=== PATIENT | female | born 1950 | race Caucasian/White ===

== ENCOUNTER 2020-08-16 15:18 | Emergency (ER) | payer MEDICARE, SELFPAY ==
--- NOTE | ~2020-08-16 | XR_ITS ---
XR sacrum coccyx min 2V DATE: 08/16/2020 17:08 INDICATION: Fall, injury. Low back and sacral and coccyx pain TECHNIQUE: AP, angled AP and lateral views COMPARISON: None FINDINGS: No sacral or coccygeal fracture or bone destruction is evident. IMPRESSION: Negative sacrum and coccyx Status post L3-S1 posterior surgical spinal fusion Reviewed, dictated and finalized at location A. AG MACHINE OPERATOR
--- NOTE | ~2020-08-16 | XR_ITS ---
XR lumbar spine 2-3V DATE: 08/16/2020 17:09 INDICATION: Lower back pain radiating to right leg TECHNIQUE: AP, lateral, coned lateral lumbosacral views COMPARISON: 04/10/2019 lumbar spine FINDINGS: Again noted are postoperative changes from laminectomy and posterior spinal surgical fusion at L3-S1. No fracture or displacement of the pedicle screws or rods. The lumbar spine fracture or bone destruction. There is degenerative disc disease throughout the lumbar and lumbosacral spine as well as diffuse idi opathic skeletal hyperostosis of the lower thoracic spine. There is stable grade 1 anterolisthesis at L3-4. The sacroiliac joints are intact. Abdominal aortic and iliac arterial calcifications. IMPRESSION: Postoperative changes from laminectomy and posterior surgical fusion at L3-S1 Multilevel degenerative disc disease Stable mild grade 1 anterolisthesis at L3-4 Reviewed, dictated and finalized at location A. MEDICAL SURGICAL IMPRESSION: Postoperative changes from laminectomy and posterior surgical fusio n at L3-S1 Multilevel degenerative disc disease Stable mild grade 1 anterolisthesis at L3-4
--- NOTE | ~2020-08-16 | XR_ITS ---
XR shoulder LT min 2V DATE: 08/16/2020 17:09 INDICATION: Fall yesterday. Left shoulder injury, pain TECHNIQUE: 4 views COMPARISON: 08/16/2019 left shoulder FINDINGS: There is degenerative change of the left acromion clavicular joint. There is mild spurring of the left humeral head and glenoid process consistent with left glenohumeral osteoarthritis. No fracture, dislocation, periosteal reaction or bone destruction or significant abnormal left should er soft tissue calcification is noted otherwise. Degenerative changes of the cervical spine. Diffuse idiopathic skeletal hyperostosis of the thoracic spine. IMPRESSION: Degenerative change at the acromioclavicular joint and osteoarthritis at the glenohumeral joint Reviewed, dictated and finalized at location A. CASE MANAGER IMPRESSION: Degenerative change at the acromioclavicular joint and osteoarthrit is at the glenohumeral joint
[2020-08-16 15:23] VITALS: BP 131/72; PULSE 87; RESP 18; TEMP 36.2; O2SAT 97
[2020-08-16] MEDS: HYDROcodone/acetaminophen (*CRX) 5-325 MG TABLET 1 TAB PO (17:06)
--- NOTE | 2020-08-16 17:16 | ED.GENADULT ---
HPI - General Adult General Chief complaint: Fall Stated complaint: 10ft FALL, TAILBONE PAIN Time Seen by Provider: 08/16/20 16:00 History of Present Illness HPI narrative: Patient is a 69-year-old female who presents ER with pain to her coccyx and left shoulder. Patient was on a short 4 foot tall ladder yesterday hanging [place] lights in her home when she lost her balance and fell backwards onto a chair and a plantar and then onto the floor striking her buttock and shoulder. She did not strike her head or lose consciousness. She reports she is able to ambulate without issue but has significant pain when sitting down and it causes her a lot of pain when trying to stand back up. Will occasionally get some radiation down her left leg of pain no numbness. This is not persistent. She has no perineal numbness or tingling. She has no incontinence or retention of urine/stool. Related Data Home Medications Medication Instructions Recorded Confirmed aspirin 81 mg tablet,delayed 81 mg PO DAILY 09/11/19 01/07/20 release cyclobenzaprine 5 mg tablet 5 mg PO BID PRN tablet 09/11/19 01/07/20 lidocaine 4 % topical patch 1 patch TOPICAL DAILY PRN 09/11/19 01/07/20 soy isoflavone-black cohosh cap PO 11/11/19 01/07/20 root-magnolia bark 155 mg capsule Allergies Allergy/AdvReac Type Severity Reaction Status Date / Time Iodinated Contrast Media Allergy Unknown sob Verified 01/07/20 13:25 Contrast Media Allergy Unknown Dyspnea / Uncoded 01/07/20 13:25 SOB Review of Systems Review of Systems: All systems reviewed & are unremarkable except as noted in HPI and below Constitutional: Constitutional: Denies chills, Denies fever(s) and Denies weakness Cardiovascular: Cardiovascular: Denies chest pain and Denies radiating jaw, neck or arm pain Musculoskeletal: Musculoskeletal: Reports back pain, Reports arthralgias, Denies joint swelling and Denies muscle cramps Neurologic: Denies syncope, Denies headache(s), Denies focal weakness and Denies numbness [facility] Past Medical History Medical History (Updated 08/16/20 @ 18:08 by Medardo Shaver MD) Arthritis Asthma CAD (coronary artery disease) Chronic pain Gout Herpes Hyperglycemia Hyperlipidemia Hypertension MDD (major depressive disorder) Osteoporosis Post-menopausal Prominent bone fixation device PUD (peptic ulcer disease) Type 2 diabetes mellitus Surgical History Surgical History H/O bone graft Iliac bone graft History of coronary artery stent placement History of left knee replacement History of lumbar laminectomy Family History Family History Father Hypertension Acute myocardial infarction Family history of hypercholesterolemia Mother Acute myocardial infarction Cerebrovascular accident Sibling Acute myocardial infarction Social History Social History Smoking status: Never smoker Second hand tobacco smoke exposure: No Alcohol intake: never Gender identity (if verbalized by the patient): Female Exam Narrative: Exam Narrative: GENERAL: Well-appearing, well-nourished, and in no acute distress. HEAD: Normocephalic, atraumatic. CHEST: Clear to auscultation. No respiratory distress. HEART: Regular rate and rhythm. Normal peripheral pulses. EXTREMITIES: Normal range of motion. No edema. Back: No midline tenderness of thoracic or lumbar spine. There is bruising and tenderness over the sacrum at the gluteal cleft. SKIN: Warm, dry, no rash. NEURO: Sensation intact in lower extremities. Alert and oriented x3. PSYCH: Normal mood and affect. Course Course Emergency Course: Informed results. Pain improved with [place]. Discharge home. Vital Signs Vital signs: Vital Signs Temperature 97.2 F L 08/16/20 15:23 Pulse Rate 87 08/16/20 15:23 Respiratory Rate 18 08/16/20
[2020-08-16 18:20] VITALS: BP 133/75; PULSE 78; RESP 18; O2SAT 99
== END 2020-08-16 18:21 | disposition home or self-care (01) ==
PROVIDERS: Emergency Provider Emergency Medicine; PCP Internal Medicine
DX: S30.0XXA Contusion of lower back and pelvis, initial encounter (principal); W11.XXXA Fall on and from ladder, initial encounter; M19.90 Unspecified osteoarthritis, unspecified site; J45.909 Unspecified asthma, uncomplicated; I25.10 Atherosclerotic heart disease of native coronary artery without angina pectoris; Z95.5 Presence of coronary angioplasty implant and graft; M10.9 Gout, unspecified; E78.5 Hyperlipidemia, unspecified; I10 Essential (primary) hypertension; M81.0 Age-related osteoporosis without current pathological fracture; E11.9 Type 2 diabetes mellitus without complications; Z96.652 Presence of left artificial knee joint; Z79.82 Long term (current) use of aspirin
CPT/HCPCS: 72100; 72220; 73030; 99284; A9270

== ENCOUNTER 2021-02-23 15:06 | Outpatient (CLI) | payer MEDICARE, SELFPAY ==
--- NOTE | ~2021-02-23 | XR_ITS ---
XR thoracic spine 3V DATE: 02/23/2021 15:36 INDICATION: Thoracic spine pain TECHNIQUE: AP, lateral, swimmer views COMPARISON: None FINDINGS: Diffuse osteopenia. There is prominent degenerative disc disease at the mid and particularly lower cervical spine. There is degenerative spurring throughout the thoracic spine, particularly prominent in the mid and l ower thoracic spine. The thoracic pedicles are intact. No fracture or bone destruction is evident. No paraspinal soft tiss ue thickening is detected. IMPRESSION: Osteopenia Prominent degenerative changes of the cervical and thoracic spine Reviewed, dictated and finalized at location A.
--- NOTE | ~2021-02-23 | XR_ITS ---
XR hand BI arthritis min 3V DATE: 02/23/2021 15:36 INDICATION: Right hand pain TECHNIQUE: 4 views of each hand COMPARISON: None FINDINGS: Right hand: Mild triangular cartilage calcification. There is severe osteoarthritic change at the first carpometacarpal joint. There is osteoarthritic change at the metacarpophalangeal joints, most pronounced at the first, secon d and fifth. There is moderate osteoarthritic change at the interphalangeal joints, especially at the first digit and second and third digit, most severe at the proximal interphalangeal joint of the third digit. No fracture, dislocation, periosteal reaction or bone destruction is evident. Left hand: There is severe osteoarthritic change at the first carpometacarpal joint. Prominent osteoarthritic changes noted at the first and second metacarpophalangeal joints and multipl e interphalangeal joints, especially the interphalangeal joint of the first digit and proximal interp halangeal joints of the third and fourth digits. No fracture, dislocation, periosteal reaction or bone destruction is detected. IMPRESSION: Prominent polyarticular osteoarthritis of the hands Reviewed, dictated and finalized at location A.
[2021-02-23 16:22] LABS: Rheumatoid Factor < 8.6 IU/ML (<12)
[2021-02-23 17:23] LABS: Erythrocyte Sedimentation Rate 35 mm/hr (0-20)
[2021-02-28 08:28] LABS: ANA Cascade Screen Negative (Negative)
== END 2021-02-23 15:07 | disposition home or self-care (01) ==
LOC: ANHIMG 15:09
PROVIDERS: PCP Internal Medicine; Visit Provider Nurse Practitioner
DX: M18.0 Bilateral primary osteoarthritis of first carpometacarpal joints (principal); M19.042 Primary osteoarthritis, left hand; M19.041 Primary osteoarthritis, right hand; M85.88 Other specified disorders of bone density and structure, other site
CPT/HCPCS: 36415; 72072; 73130; 85652; 86038; 86430

== ENCOUNTER → 2021-03-23 15:43 | Outpatient (CLI) | payer MEDICARE, SELFPAY ==
--- NOTE | ~2021-03-23 | XR_ITS ---
XR wrist LT min 3V DATE: 03/23/2021 16:20 INDICATION: Wrist and hand pain TECHNIQUE: 4 views of left wrist COMPARISON: None FINDINGS: There is narrowing at the triscaphe joint. There is severe osteoarthritic change at the fir st carpometacarpal joint. Osteoarthritic change at the first and second metacarpophalangeal joints. There is calcification at the triangular cartilage. No fracture or dislocation, periosteal reaction or bone destruction of the left wrist is evident. IMPRESSION: Osteoarthritic change at the triscaphe and particularly first carpometacarpal joint, as w ell as first and second metacarpophalangeal joints Mild calcification of the triangular cartilage Reviewed, dictated and finalized at location B. IMPRESSION: Osteoarthritic change at the triscaphe and particularly first carpo metacarpal joint, as well as first and second metacarpophalangeal joints Mild calcification of the triangular cartilage
--- NOTE | ~2021-03-23 | XR_ITS ---
XR hand RT 2V DATE: 03/23/2021 16:20 INDICATION: Right hand pain TECHNIQUE: AP and lateral views COMPARISON: None FINDINGS: Triangular cartilage calcification. Narrowing of the triscaphe joint. Prominent osteoarthritic change at the first carpal metacarpal join t. There is osteoarthritic change as well at the first and second metacarpophalangeal and multiple in terphalangeal joints, most pronounced at the proximal interphalangeal joint of the third digit and pr oximal and distal interphalangeal joints of the second digit. No fracture or dislocation, periosteal reaction or bone destruction is evident. IMPRESSION: Polyarticular osteoarthritis Reviewed, dictated and finalized at location B.
--- NOTE | ~2021-03-23 | XR_ITS ---
XR wrist RT min 3V DATE: 03/23/2021 16:20 INDICATION: Right wrist pain TECHNIQUE: 4 views COMPARISON: None FINDINGS: There is mild calcification of the triangular cartilage. There is narrowing at the triscaphe joint. There is prominent osteoarthritic change at the first carp ometacarpal joint. Osteoarthritic changes are noted at the first second metacarpophalangeal joints and interphalangeal j oint of the first digit. No fracture or dislocation, periosteal reaction or bone destruction is detected. IMPRESSION: Polyarticular osteoarthritis Reviewed, dictated and finalized at location B.
--- NOTE | ~2021-03-23 | XR_ITS ---
XR hand LT 2V DATE: 03/23/2021 16:20 INDICATION: Left hand pain TECHNIQUE: AP and lateral views COMPARISON: None FINDINGS: There is straightening of the cartilage calcification. There is narrowing at the triscaphe joint. There is prominent osteoarthritic change at the first carp ometacarpal joint. There is osteoarthritis at the first and second metacarpophalangeal and multiple interphalangeal join ts. No fracture or dislocation, periosteal reaction or bone destruction is detected. IMPRESSION: Polyarticular osteoarthritis Reviewed, dictated and finalized at location B.
== END ==
PROVIDERS: PCP Internal Medicine; Visit Provider Nurse Practitioner Adult Health
DX: M25.539 Pain in unspecified wrist (principal); M79.643 Pain in unspecified hand; M89.49 Other hypertrophic osteoarthropathy, multiple sites
CPT/HCPCS: 73110; 73120

== ENCOUNTER → 2021-06-07 11:57 | Outpatient (CLI) | payer MEDICARE, SELFPAY ==
--- NOTE | ~2021-06-07 | MR_ITS ---
EXAMINATION: MR cervical spine wo con EXAM DATE: 06/07/2021 12:44 INDICATION: Cervical radiculopathy. Left shoulder and arm pain. TECHNIQUE: Multi-sequential, multiplanar MR images of the cervical spine were obtained without contra st. Axial T2, axial T2 MERGE sequence. Sagittal T1, T2, T2 fat saturation images also obtained. Com parison is made to prior examination from 08/20/2019. FINDINGS: Bulky pannus formation surrounding the odontoid process. There is moderate disc disease at C5-6 and 6-7, mild to moderate at the other cervical levels. There is 2 mm anterolisthesis T1 and T2 and T2 on T3. The spinal cord signal intensity and intrinsic morphology is normal. Cervicomedullary junction is normal in appearance. There are no suspicious marrow signal abnormalities. Paraspinal sof t tissue is unremarkable. Level by level evaluation: C2-C3: Disc does not extend beyond the endplate margin. Uncovertebral joint arthropathy: Mild to moderate bilateral. Facet joint arthropathy: Moderate to severe right, moderate left. Neural foraminal stenosis: Mild right. Central canal stenosis: No stenosis. C3-C4: Disc does not extend beyond the endplate margin. Uncovertebral joint arthropathy: Moderate left, mild to moderate right. Facet joint arthropathy: Severe bilateral. Neural foraminal stenosis: Moderate to severe left, mild right. Central canal stenosis: No stenosis. C4-C5: There is a minimal diffuse disc bulge. Uncovertebral joint arthropathy: Mild bilateral. Facet joint arthropathy: Moderate left, mild right. Neural foraminal stenosis: Moderate left, mild to moderate right. Central canal stenosis: Mild. C5-C6: There is a mild diffuse disc bulge. Uncovertebral joint arthropathy: Moderate to severe right, moderate left. Facet joint arthropathy: Moderate to severe bilateral. Neural foraminal stenosis: Mild to moderate bilateral. Central canal stenosis: Mild . C6-C7: There is a minimal diffuse disc bulge. Uncovertebral joint arthropathy: Moderate to severe right, moderate left. Facet joint arthropathy: Mild bilateral. Neural foraminal stenosis: No stenosis. Central canal stenosis: No stenosis. C7-T1: Disc does not extend beyond the endplate margin. Uncovertebral joint arthropathy: Moderate bilateral. Facet joint arthropathy: Moderate bilateral. Neural foraminal stenosis: Mild left. Central canal stenosis: No stenosis. T1-2: There is a mild diffuse disc bulge. Facet arthropathy: Mild to moderate. Neural foraminal stenosis: Moderate left. Central canal stenosis: No stenosis. Difficult appreciate significant interval change compared to prior study. IMPRESSION: 1. Advanced cervical arthropathy causing multilevel neural foraminal stenosis. 2. Left neural foramen most severely narrowed C3-4, 4-5 and T2-3. Reviewed, dictated and finalized at location A.
== END ==
PROVIDERS: PCP Internal Medicine; Visit Provider Nurse Practitioner Adult Health
DX: M47.23 Other spondylosis with radiculopathy, cervicothoracic region (principal); M48.03 Spinal stenosis, cervicothoracic region
CPT/HCPCS: 72141

== ENCOUNTER 2021-06-29 18:06 | Emergency (ER) | payer MEDICARE, SELFPAY ==
--- NOTE | ~2021-06-29 | CT_ITS ---
EXAMINATION: CT abdomen pelvis wo con DATE: 06/29/2021 20:42 INDICATION: Abdominal pain TECHNIQUE: Computed tomography (CT) of the abdomen and pelvis was performed without intravenous contr ast. The dose-length product (DLP) was 507.70 mGy-cm. Automated exposure control and iterative recons truction technique were employed. COMPARISON: 01/22/2018 FINDINGS: There is mild emphysema of the visualized lung bases. The heart size is normal. There is a small sliding hiatal hernia. A stone is present in the nondistended gallbladder. The liver, spleen, p ancreas, and adrenal glands are normal. No pathologically enlarged abdominal or pelvic lymph nodes ar e identified. Colonic diverticulosis is present without evidence of diverticulitis. There is no free intraperitoneal gas or evidence of bowel obstruction. There is mild circumferential wall thickening o f the descending colon. There are changes of posterior fusion from L3 through S1. A small fat-contain ing umbilical hernia is noted. IMPRESSION: 1. Mild circumferential wall thickening of the descending colon, consistent with colitis. Reviewed, dictated and finalized at location A. IMPRESSION: 1. Mild circumferential wall thickening of the descending colon, consistent wit h colitis.
[2021-06-29 18:10] VITALS: BP 193/111; PULSE 132; RESP 28; TEMP 36.9; O2SAT 99
[2021-06-29] MEDS: SODIUM CHLORIDE 0.9% IV 1,000 ML 150 ML IV CONT (20:50)
[2021-06-29 20:53] VITALS: BP 157/83; PULSE 102; RESP 18; O2SAT 97
[2021-06-29 21:22] LABS: Basophils Percent Auto 0.4 % (0.2-1.2); Eosinophils Percent Auto 0.3 % (0-4.4); Hematocrit 35.1 % (37.0-47.0); Immature Granulocyte Absolute 0.02 K/mm3 (0.00-0.031); Immature Granulocyte Percent A 0.3 % (0-0.5); Lymphocytes Absolute Auto 1.36 K/mm3 (0.9-3.2); Lymphocytes Percent Auto 17.1 % (18.3-44.2); Mean Corpuscular HGB Conc 31.3 g/dl (32-36); Mean Platelet Volume 10.6 fl (7.4-10.4); Monocytes Absolute Auto 0.6 K/mm3 (0.1-0.6); Neutrophils Percent Auto 74.9 % (45.5-73.1); Platelet Count Result 205 k/mm3 (150-375); Red Blood Count 4.08 M/mm3 (4.2-5.4); Red Cell Distribution Width 15.3 % (11.5-14.5)
[2021-06-29 21:30] LABS: INR 1.1; Prothrombin Time 13.6 Seconds (11.1-14.7)
[2021-06-29 21:31] LABS: Partial Thromboplastin Time 28.1 SECONDS (22.3-36.8)
[2021-06-29 21:33] LABS: Alanine Aminotransferase 14 U/L (4-35); Albumin Level 3.9 g/dL (3.5-5.1); Alkaline Phosphatase 62 U/L (38-126); Anion Gap 7 mmol/L (8-16); Aspartate Amino Transferase 23 U/L (14-36); Bilirubin,Total 0.7 mg/dL (0.2-1.3); Blood Urea Nitrogen 26 mg/dL (7-17); Calcium 9.1 mg/dL (8.4-10.2); Carbon Dioxide 26 mmol/L (22-30); Chloride 107 mmol/L (98-107); Estimated CRCL calculation 52 ml/min; Estimated Glomerular Filt Rate > 60; Glucose 113 mg/dL (65-110); Potassium 4.5 mmol/L (3.4-5.0); Sodium 140 mmol/L (137-145)
[2021-06-29 21:36] VITALS: BP 147/67; PULSE 93
[2021-06-29 21:40] VITALS: BP 151/80; PULSE 102
[2021-06-29 21:42] VITALS: BP 174/94; PULSE 113
--- NOTE | 2021-06-29 22:01 | ED.NAVMDI ---
HPI - Nausea/Vomiting/Diarrhea General Chief complaint: Nausea/Vomiting/Diarrhea Stated complaint: Abd Pain Time Seen by Provider: 06/29/21 20:20 Source: patient and family Mode of arrival: ambulatory Limitations: no limitations History of Present Illness HPI Narrative: 70-year-old with a history of hyperlipidemia, major depressive disorder, diabetes, hyperlipidemia here with complaints of nausea and vomiting and diarrhea for past 2 days. She denies any fever. Has occasional left lower abdominal pain. Patient states that noticed little blood in the stool. No other family member is sick at this time. MD elicited complaint: nausea, vomiting and diarrhea Description of vomiting: watery Description of diarrhea: blood and watery Associated abdominal pain: Yes Location of pain: LLQ Quality: cramping Associated symptoms: denies other symptoms Related Data Home Medications Medication Instructions Recorded Confirmed aspirin 81 mg tablet,delayed 81 mg PO DAILY 09/11/19 06/02/21 release cyclobenzaprine 5 mg tablet 5 mg PO BID PRN tablet 09/11/19 06/02/21 soy isoflavone-black cohosh cap PO 11/11/19 06/02/21 root-magnolia bark 155 mg capsule gabapentin 600 mg tablet 600 mg PO TID 04/06/21 06/02/21 cholecalciferol (vitamin D3) 50 50 mcg PO DAILY 04/29/21 06/02/21 mcg (2,000 unit) capsule Allergies Allergy/AdvReac Type Severity Reaction Status Date / Time Iodinated Contrast Media Allergy Unknown sob Verified 01/07/20 13:25 Contrast Media Allergy Unknown Dyspnea / Uncoded 01/07/20 13:25 SOB Review of Systems Review of Systems: All systems reviewed & are unremarkable except as noted in HPI and below Constitutional: Constitutional: Reports no additional constitutional complaints Eyes: Eyes: Reports no additional eye complaints ENT: Reports system reviewed and no additional complaints, except as documented Cardiovascular: Cardiovascular: Reports no additional cardiovascular complaints Respiratory: Respiratory: Reports no additional respiratory complaints Gastrointestinal: Gastrointestinal: Reports as per HPI Musculoskeletal: Musculoskeletal: Reports no additional musculoskeletal complaints Neurologic: Reports system reviewed and no additional complaints, except as documented PMFSH Past Medical History Medical History Arthritis Asthma CAD (coronary artery disease) Chronic pain Gout Herpes Hyperglycemia Hyperlipidemia Hypertension MDD (major depressive disorder) Osteoporosis Post-menopausal Prominent bone fixation device PUD (peptic ulcer disease) Type 2 diabetes mellitus Surgical History Surgical History H/O bone graft Iliac bone graft History of coronary artery stent placement History of left knee replacement History of lumbar laminectomy Family History Family History Father Hypertension Acute myocardial infarction Family history of hypercholesterolemia Mother Acute myocardial infarction Cerebrovascular accident Sibling Acute myocardial infarction Social History Social History Smoking status: Never smoker Second hand tobacco smoke exposure: No Alcohol intake: never Gender identity (if verbalized by the patient): Female Exam Narrative: GENERAL: Well-appearing, well-nourished, and in no acute distress. HEAD: Normocephalic, atraumatic. EYES: PERRLA and EOMI.. NECK: Supple. CHEST: Clear to auscultation. No respiratory distress. HEART: Regular rate and rhythm. No murmur heard. Normal peripheral pulses. ABDOMEN: Soft, nontender, nondistended, normal active bowel sounds. EXTREMITIES: Normal range of motion. No edema. SKIN: Warm, dry, no rash. NEURO: No focal deficits. Alert and oriented x3. PSYCH: Normal mood and affect. Course Course Emergency Course:
[2021-06-29 22:24] VITALS: BP 192/95; PULSE 99; RESP 12; O2SAT 97
== END 2021-06-29 22:25 | disposition home or self-care (01) ==
PROVIDERS: Emergency Provider Family Medicine; PCP Internal Medicine
DX: K52.9 Noninfective gastroenteritis and colitis, unspecified (principal); M19.90 Unspecified osteoarthritis, unspecified site; J45.909 Unspecified asthma, uncomplicated; I25.10 Atherosclerotic heart disease of native coronary artery without angina pectoris; I10 Essential (primary) hypertension; F32.9 Major depressive disorder, single episode, unspecified; E11.9 Type 2 diabetes mellitus without complications
CPT/HCPCS: 36415; 74176; 80053; 85025; 85610; 85730; 86850; 86900; 86901; 96360; 99284; J7030

== ENCOUNTER 2022-05-08 13:34 | Outpatient (CLI) | payer MEDICARE, SELFPAY ==
[2022-05-08 18:26] LABS: Basophils Percent Auto 0.7 % (0.2-1.2); Eosinophils Percent Auto 0.5 % (0-4.4); Hematocrit 34.6 % (37.0-47.0); Hemoglobin 11.2 g/dL (12.0-15.0); Immature Granulocyte Absolute 0.01 K/mm3 (0.00-0.031); Immature Granulocyte Percent A 0.2 % (0-0.5); Lymphocytes Absolute Auto 1.19 K/mm3 (0.9-3.2); Lymphocytes Percent Auto 28.6 % (18.3-44.2); Mean Corpuscular HGB Conc 32.4 g/dl (32-36); Mean Corpuscular Hemoglobin 26.9 pg (26-34); Mean Platelet Volume 11.8 fl (7.4-10.4); Monocytes Absolute Auto 0.3 K/mm3 (0.1-0.6); Monocytes Percent Auto 7.5 % (2.6-8.5); Neutrophils Absolute Auto 2.6 K/mm3 (1.3-6.7); Neutrophils Percent Auto 62.5 % (45.5-73.1); Platelet Count Result 208 k/mm3 (150-375); Red Blood Count 4.17 M/mm3 (4.2-5.4); Red Cell Distribution Width 13.7 % (11.5-14.5); White Blood Count 4.2 K/mm3 (4.5-10.0)
[2022-05-08 19:02] LABS: Alanine Aminotransferase 15 U/L (6-35); Albumin Level 4.3 g/dL (3.5-5.1); Alkaline Phosphatase 73 U/L (38-126); Anion Gap 10 mmol/L (8-16); Aspartate Amino Transferase 30 U/L (14-36); Bilirubin,Total 0.3 mg/dL (0.2-1.3); Blood Urea Nitrogen 30 mg/dL (7-17); Calcium 9.5 mg/dL (8.4-10.2); Carbon Dioxide 28 mmol/L (22-30); Chloride 99 mmol/L (98-107); Estimated Glomerular Filt Rate 55; Glucose 117 mg/dL (65-110); Sodium 137 mmol/L (137-145)
[2022-05-08 19:28] LABS: Thyroid Stimulating Hormone 0.743 uIU/mL (0.465-4.680)
[2022-05-08 19:35] LABS: Iron 62 ug/dL (37-170)
[2022-05-08 19:46] LABS: Percent Iron Saturation 14 % (20-50)
[2022-05-08 21:07] LABS: Hemoglobin A1C 5.8 % (<5.7)
== END 2022-05-08 13:35 | disposition home or self-care (01) ==
LOC: ANHGOSHLAB 13:42
PROVIDERS: PCP Internal Medicine; Visit Provider Clinical Nurse Specialist
DX: R41.3 Other amnesia (principal); I10 Essential (primary) hypertension; E11.9 Type 2 diabetes mellitus without complications; D50.9 Iron deficiency anemia, unspecified
CPT/HCPCS: 36415; 80053; 82607; 82728; 83036; 83540; 83550; 84443; 85025

== ENCOUNTER 2022-06-21 15:18 | Outpatient (CLI) | payer MEDICARE, SELFPAY ==
[2022-06-21 19:31] LABS: Basophils Percent Auto 0.7 % (0.2-1.2); Eosinophils Percent Auto 0.9 % (0-4.4); Hematocrit 33.2 % (37.0-47.0); Hemoglobin 10.4 g/dL (12.0-15.0); Immature Granulocyte Absolute 0.01 K/mm3 (0.00-0.031); Immature Granulocyte Percent A 0.2 % (0-0.5); Lymphocytes Absolute Auto 1.34 K/mm3 (0.9-3.2); Lymphocytes Percent Auto 29.6 % (18.3-44.2); Mean Corpuscular HGB Conc 31.3 g/dl (32-36); Mean Platelet Volume 11.5 fl (7.4-10.4); Monocytes Absolute Auto 0.3 K/mm3 (0.1-0.6); Monocytes Percent Auto 6.9 % (2.6-8.5); Neutrophils Absolute Auto 2.8 K/mm3 (1.3-6.7); Neutrophils Percent Auto 61.7 % (45.5-73.1); Platelet Count Result 187 k/mm3 (150-375); Red Cell Distribution Width 13.9 % (11.5-14.5); White Blood Count 4.5 K/mm3 (4.5-10.0)
[2022-06-21 20:09] LABS: Alanine Aminotransferase 18 U/L (6-35); Albumin Level 4.2 g/dL (3.5-5.1); Alkaline Phosphatase 68 U/L (38-126); Anion Gap 13 mmol/L (8-16); Aspartate Amino Transferase 25 U/L (14-36); Bilirubin,Total 0.3 mg/dL (0.2-1.3); Blood Urea Nitrogen 26 mg/dL (7-17); Calcium 9.2 mg/dL (8.4-10.2); Carbon Dioxide 27 mmol/L (22-30); Chloride 103 mmol/L (98-107); Estimated Glomerular Filt Rate 49; Glucose 120 mg/dL (65-110); Potassium 3.8 mmol/L (3.4-5.0); Sodium 143 mmol/L (137-145)
[2022-06-21 20:15] LABS: Iron 40 ug/dL (37-170)
[2022-06-21 20:25] LABS: Percent Iron Saturation 9 % (20-50)
== END 2022-06-21 15:19 | disposition home or self-care (01) ==
LOC: ANHGOSHLAB 15:19
PROVIDERS: PCP Internal Medicine; Visit Provider Clinical Nurse Specialist
DX: D50.9 Iron deficiency anemia, unspecified (principal); I10 Essential (primary) hypertension; R20.0 Anesthesia of skin; R20.2 Paresthesia of skin
CPT/HCPCS: 36415; 80053; 82728; 83540; 83550; 85025

== ENCOUNTER 2022-07-04 10:17 | Outpatient (CLI) | payer MEDICARE, SELFPAY ==
--- NOTE | ~2022-07-04 | MR_ITS ---
EXAMINATION: MR brain/brain stem wo/w con DATE: 07/04/2022 14:30 INDICATION: Memory loss. TECHNIQUE: Magnetic resonance imaging (MRI) of the brain and brainstem was performed without and with 15 mL MultiHance intravenous contrast. COMPARISON: Brain MRI 04/10/2007 FINDINGS: There are scattered areas of nonspecific increased T2-weighted signal intensity in the cere bral and cerebellar white matter, which is within normal limits for the patient's age. There is no in tracranial hemorrhage, acute infarction, or abnormal intracranial mass lesion. The ventricles are nor mal in size. The orbits are normal. The mastoid air cells are normal. The paranasal sinuses are clear . IMPRESSION: 1. Normal aging brain. Reviewed, dictated and finalized at location A. IMPRESSION: 1. Normal aging brain.
--- NOTE | 2022-07-04 11:45 | NEURO_ITS ---
Impression: # Complains of left arm pain and numbness. # Normal nerve conduction study. # Normal needle/EMG exam. # No evidence of Carpal Tunnel Syndrome or ulnar neuropathy. # Clinical correlation recommended. Motor Nerve Conduction Upper Extremities Median Nerve Conduction Velocity (m/sec) Terminal Latency (msec) Response Voltage(mV) Elbow-Wrist Wrist Elbow Wrist Right Left 55 3.5 3 4 Ulnar Nerve Conduction Velocity (m/sec) Terminal Latency (msec) Response Voltage(mV) Above Elbow Below Elbow Wrist Above Elbow Below Elbow Wrist Right Left 49 56 2.7 5 5 6 F-Wave Latency Median (ms) Ulnar (ms) Right Left 30.0 30.5 Sensory Nerve Conduction Upper Extremities Median Nerve Stimulation Terminal Latency (msec) Wrist/Digit Response Voltage (uV) Wrist Right Left 3.0/3.2 32/32 Ulnar Nerve Stimulation Terminal Latency (msec) Wrist/Digit Response Voltage (uV) Wrist Right Left 2.8 26 Radial Nerve Terminal Latency (msec) Response Voltage(mV) Right Left 2.2 32 Left Right Muscles Examined Fibrillation Fasciculation Scarcity Voltage Duration Left Right Left Right Left Right Left Right Left Right Deltoid Biceps x Brachioradialis Triceps x Pronator Teres x Ext Indicis x Ext Digitorum x Abd Poll Brev x 1st Dorsal Interosseus Paraspinals MTDD
== END 2022-07-04 10:18 | disposition home or self-care (01) ==
PROVIDERS: PCP Internal Medicine; Visit Provider Clinical Nurse Specialist
DX: R41.3 Other amnesia (principal); R20.2 Paresthesia of skin
CPT/HCPCS: 70553; 95886; 95909; A9577

== ENCOUNTER → 2022-12-13 11:38 | Outpatient (CLI) | payer MEDICARE, SELFPAY ==
--- NOTE | ~2022-12-13 | XR_ITS ---
EXAM: XR hand LT min 3V, XR hand RT min 3V DATE: 12/13/2022 11:47 (accession [id number]), 12/13/2022 11:46 (accession [id number]) HISTORY: no injury bilateral hand pain . COMPARISON: None available. FINDINGS: Normal mineralization. No fracture or dislocation. No lytic or blastic lesion. Osteoarthri tic changes at multiple DIP and PIP joints of the bilateral fingers, the bilateral first and second M CP joints, bilateral thumb interphalangeal joints, bilateral triscaphe joints, and bilateral trapezio metacarpal joints. Most progressive change is present in the right third PIP joint and the bilateral trapeziometacarpal joints. Bilateral TFCC chondrocalcinosis. No erosion or periosteal change. Soft ti ssues within normal limits. IMPRESSION: Polyarticular osteoarthritis of the hands. Reviewed, dictated and finalized at location K. IMPRESSION: Polyarticular osteoarthritis of the hands.
== END ==
PROVIDERS: PCP Nurse Practitioner; Visit Provider Nurse Practitioner
DX: M79.642 Pain in left hand (principal); M79.641 Pain in right hand; M15.9 Polyosteoarthritis, unspecified
CPT/HCPCS: 73130

== ENCOUNTER 2023-05-04 15:56 | Emergency (ER) | payer MEDICARE, SELFPAY ==
--- NOTE | ~2023-05-04 | XR_ITS ---
EXAMINATION: XR wrist RT min 3V DATE: 05/04/2023 17:48 INDICATION: Right wrist pain TECHNIQUE: Posteroanterior, ulnar deviation, oblique, and lateral views of the right wrist were obtai starla. COMPARISON: 12/13/2022 FINDINGS: -3 mm ulnar positive variance. Alignment is otherwise normal. No fracture. Mild chondrocalcinosis in the region of the triangular fiber cartilage complex. Polyarticular osteoarthritis, severe at the fir st carpal metacarpal joint, moderate severity at the triscaphe and first metacarpophalangeal joints a nd mild at the wrist, midcarpal and fifth metacarpophalangeal joints. No erosions. IMPRESSION: 1. 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 Reviewed, dictated and finalized at location A. IMPRESSION: 1. 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
--- NOTE | ~2023-05-04 | XR_ITS ---
EXAMINATION: XR thoracic spine 3V DATE: 05/04/2023 17:48 INDICATION: Mid back pain TECHNIQUE: One AP, lateral and lateral swimmer's views of the thoracic spine were obtained. COMPARISON: 02/23/2021 FINDINGS: Mild upper thoracic levocurvature. Sagittal alignment is normal. Vertebral body heights are normal. M oderate disc height loss at a few levels in the lower cervical, upper thoracic and upper lumbar spine . Multilevel mild disc height loss in the mid to lower lumbar spine. Partially visualized bilateral v ertical donald and pedicle screw fixation for lower lumbar posterior spinal fusion beginning at L3 and e xtending below the caudal margin of the field of imaging. Paravertebral soft tissues are unremarkable . Visualized portion of the lungs are clear with no pleural effusion or pneumothorax. Heart size is n ormal. IMPRESSION: 1. Mild to moderate thoracic spondylosis. Reviewed, dictated and finalized at location A.
[2023-05-04 15:58] VITALS: BP 150/90; PULSE 114; RESP 18; TEMP 36.6; O2SAT 98
--- NOTE | 2023-05-04 16:56 | ED.EXTPRO ---
HPI - Extremity Problem General Chief complaint: Extremity Problem,Nontraumatic Stated complaint: wrist pain Time Seen by Provider: 05/04/23 16:56 Source: patient Mode of arrival: ambulatory Limitations: no limitations History of Present Illness HPI Narrative: This is a 72 year old female that presents to the ER for acute on chronic right wrist pain ongoing over the last couple of days. Also reporting acute on chronic mid back pain. No recent injuries or trauma. The pain is worse with movement and relieved with rest. She has been applying [id number] topical pain cream with relief. Denies fever, edema, numbness, or weakness. Related Data Home Medications Medication Instructions Recorded Confirmed cholecalciferol (vitamin D3) 25 25 mcg PO DAILY 06/21/22 12/13/22 mcg (1,000 unit) capsule gabapentin 100 mg capsule 100 mg PO TID 06/21/22 12/13/22 lidocaine HCl 4 % topical liquid ea topical 06/21/22 12/13/22 roll-on (Aspercreme (lidocaine HCl)) aspirin 81 mg tablet,delayed 81 mg PO DAILY 12/13/22 12/13/22 release mecobalamin (vitamin B12) 500 mcg mcg PO 12/13/22 12/13/22 chewable tablet vvdbwxshbbvi-Ad-pfra-minerals tablet PO 12/13/22 12/13/22 Allergies Allergy/AdvReac Type Severity Reaction Status Date / Time Iodinated Contrast Media Allergy Unknown sob Verified 05/04/23 16:49 Contrast Media Allergy Unknown Dyspnea / Uncoded 05/04/23 16:49 SOB Review of Systems Review of Systems: CONSTITUTIONAL: Denies fever SKIN: Denies rash MUSCULOSKELETAL: Reports back pain, joint pain, and myalgia. NEUROLOGIC: Denies numbness, or weakness. All systems reviewed & are unremarkable except as noted in HPI and below PMFSH Past Medical History Medical History Arthritis Asthma CAD (coronary artery disease) Chronic pain Gout Herpes Hyperglycemia Hyperlipidemia Hypertension MDD (major depressive disorder) Osteoporosis Post-menopausal Prominent bone fixation device PUD (peptic ulcer disease) Type 2 diabetes mellitus Surgical History Surgical History H/O bone graft Iliac bone graft History of coronary artery stent placement History of left knee replacement History of lumbar laminectomy Family History Family History Father Hypertension Acute myocardial infarction Family history of hypercholesterolemia Mother Acute myocardial infarction Cerebrovascular accident Sibling Acute myocardial infarction Social History Social History (Updated 12/13/22 @ 11:21 by Tia Barbosa CMA) Smoking status: Never smoker Second hand tobacco smoke exposure: No Alcohol intake: never Lack of Transportation: No Lack of Food: Never True Current Housing: I Have Housing Concerned About Future Housing: No Difficulty Paying Gas/Electric Bills: No Difficulty Paying for Meds: Decline to Answer Currently Unemployed: No Education: Decline to Answer Difficulty w/ Childcare or Family Care: No Gender identity (if verbalized by the patient): Female Exam Narrative: GENERAL: Well-appearing, well-nourished, and in no acute distress. HEAD: Normocephalic, atraumatic. EYES: EOMI. CHEST: Clear to auscultation. No respiratory distress. No wheezes rales or rhonchi HEART: Regular rate and rhythm. No murmur heard. Normal peripheral pulses. EXTREMITIES: Normal range of motion. No edema, erythema or warmth. Strength equal in bilateral upper extremities (5/5). Normal radial pulse. Normal sensation SKIN: Warm, dry, no rash. NEURO: No focal deficits. Alert and oriented x3. PSYCH: Normal mood and affect Course Course Emergency Course: Patient updated on work-up and agrees with plan of care Vital Signs Vital signs: Vital Signs Temperature 98 F 05/04/23 15:58 Pulse Rate 114 H 05/04/23 15:58 Respiratory Rate 18
[2023-05-04] MEDS: ACETAMINOPHEN 500 MG TABLET 1000 MG PO (17:51)
[2023-05-04] MEDS: KETOROLAC 30 MG/ML VIAL (*BKC) IM (17:51)
[2023-05-04 18:56] VITALS: BP 112/70; PULSE 77; RESP 16; O2SAT 99
[2023-05-04] MEDS: diazePAM INJ (*CRX) 10 MG/2 ML SYRINGE 5 MG IM (19:15)
== END 2023-05-04 19:37 | disposition home or self-care (01) ==
PROVIDERS: Emergency Provider Physician Assistant; PCP Internal Medicine
DX: M25.531 Pain in right wrist (principal); M54.6 Pain in thoracic spine; G89.29 Other chronic pain; I25.10 Atherosclerotic heart disease of native coronary artery without angina pectoris; I10 Essential (primary) hypertension; J45.909 Unspecified asthma, uncomplicated; E78.5 Hyperlipidemia, unspecified; E11.9 Type 2 diabetes mellitus without complications; M81.0 Age-related osteoporosis without current pathological fracture; M10.9 Gout, unspecified; M19.90 Unspecified osteoarthritis, unspecified site; F32.9 Major depressive disorder, single episode, unspecified; Z87.11 Personal history of peptic ulcer disease; Z95.5 Presence of coronary angioplasty implant and graft; Z96.652 Presence of left artificial knee joint; Z79.82 Long term (current) use of aspirin; M47.814 Spondylosis without myelopathy or radiculopathy, thoracic region; M19.031 Primary osteoarthritis, right wrist; M19.041 Primary osteoarthritis, right hand; M18.9 Osteoarthritis of first carpometacarpal joint, unspecified
CPT/HCPCS: 72072; 73110; 96372; 99284; A9270; J1885; J3360

== ENCOUNTER 2023-08-13 15:22 | Outpatient (CLI) | payer MEDICARE, SELFPAY ==
[2023-08-13 19:26] LABS: Basophils Percent Auto 0.4 % (0.2-1.2); Eosinophils Percent Auto 0.1 % (0-4.4); Hematocrit 36.6 % (37.0-47.0); Hemoglobin 11.4 g/dL (12.0-15.0); Immature Granulocyte Absolute 0.02 K/mm3 (0.00-0.031); Immature Granulocyte Percent A 0.3 % (0-0.5); Lymphocytes Absolute Auto 1.27 K/mm3 (0.9-3.2); Lymphocytes Percent Auto 16.2 % (18.3-44.2); Mean Corpuscular HGB Conc 31.1 g/dl (32-36); Mean Corpuscular Hemoglobin 25.7 pg (26-34); Mean Corpuscular Volume 82.6 fl (80-100); Mean Platelet Volume 11.3 fl (7.4-10.4); Monocytes Absolute Auto 0.5 K/mm3 (0.1-0.6); Monocytes Percent Auto 6.9 % (2.6-8.5); Neutrophils Percent Auto 76.1 % (45.5-73.1); Platelet Count Result 193 k/mm3 (150-375); Red Blood Count 4.43 M/mm3 (4.2-5.4); Red Cell Distribution Width 14.6 % (11.5-14.5); White Blood Count 7.9 K/mm3 (4.5-10.0)
[2023-08-13 21:16] LABS: Alanine Aminotransferase 15 U/L (6-35); Albumin Level 4.6 g/dL (3.5-5.1); Alkaline Phosphatase 81 U/L (38-126); Anion Gap 11 mmol/L (8-16); Aspartate Amino Transferase 40 U/L (14-36); Bilirubin,Total 0.8 mg/dL (0.2-1.3); Blood Urea Nitrogen 25 mg/dL (7-17); Carbon Dioxide 26 mmol/L (22-30); Chloride 99 mmol/L (98-107); Estimated Glomerular Filt Rate > 60; Glucose 121 mg/dL (65-110); Potassium 4.3 mmol/L (3.4-5.0); Sodium 136 mmol/L (137-145)
[2023-08-13 21:50] LABS: Iron 33 ug/dL (37-170)
[2023-08-13 22:06] LABS: Percent Iron Saturation 8 % (20-50)
== END 2023-08-13 15:23 | disposition home or self-care (01) ==
LOC: ANHGOSHLAB 15:24
PROVIDERS: PCP Internal Medicine; Visit Provider Clinical Nurse Specialist
DX: D64.9 Anemia, unspecified (principal); F32.9 Major depressive disorder, single episode, unspecified; E55.9 Vitamin D deficiency, unspecified; E11.9 Type 2 diabetes mellitus without complications
CPT/HCPCS: 36415; 80053; 82306; 82607; 82728; 83540; 83550; 84443; 85025

== ENCOUNTER 2023-09-25 19:18 | Emergency (ER) | payer MEDICARE, SELFPAY ==
[2023-09-25 19:19] VITALS: BP 198/88; PULSE 70; RESP 20; TEMP 36.8; O2SAT 96
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
[2023-09-25] MEDS: ACETAMINOPHEN 500 MG TABLET 1000 MG PO (21:34)
[2023-09-25] MEDS: TETANUS,DIPHTHERIA,AC PERTUSSIS ADULT (0.5 ML) BOOSTRIX IM (21:35)
[2023-09-25 22:01] VITALS: BP 142/80; PULSE 77; RESP 22; TEMP 36.7; O2SAT 99
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
== END 2023-09-25 22:02 | disposition home or self-care (01) ==
PROVIDERS: Emergency Provider Student in an Organized Health Care Education/Training Program; PCP Internal Medicine
DX: T23.231A Burn of second degree of multiple right fingers (nail), not including thumb, initial encounter (principal); T31.0 Burns involving less than 10% of body surface; I25.10 Atherosclerotic heart disease of native coronary artery without angina pectoris; E78.5 Hyperlipidemia, unspecified; I10 Essential (primary) hypertension; E11.9 Type 2 diabetes mellitus without complications; Z23 Encounter for immunization; X15.3XXA Contact with hot saucepan or skillet, initial encounter
CPT/HCPCS: 90471; 90715; 99283; A9270